=== PATIENT | male | born 1995 | race Caucasian/White ===

== ENCOUNTER 2018-07-04 18:06 | Emergency (ER) | payer OTHER ==
[~2018-07-04] VITALS: Ht 160 cm; Wt 60.0 kg
[2018-07-04 18:15] VITALS: TEMP 98
[2018-07-04 20:23] LABS: BASO # 0.1 (0.0-0.2); BASO % 0.4 % (0.0-2.0); EOS # 0.4 (0.0-0.7); EOS % 2.9 % (0-4.0); GRAN # 8.6 (1.4-6.5); GRAN % 70.2 % (42.2-75.2); HEMATOCRIT 42.2 % (42.0-52.0); HEMOGLOBIN 14.9 g/dl (13.5-18.0); LYMPH # 2.1 (1.2-3.4); LYMPH % 17.5 % (20.0-51.0); MEAN CELL VOLUME 89 fl (80.0-100.0); MEAN CORPUSCULAR HEMOGLOBIN 32 pg (27.0-31.0); MEAN CORPUSCULAR HGB CONC 35 g/dl (33.0-37.0); MEAN PLATELET VOLUME 11.9 fl (7.4-10.4); MONO # 1.1 (0.1-0.6); MONO % 8.7 % (1.7-9.3); PLATELET COUNT 209 K/mm3 (130-400); RED BLOOD COUNT 4.73 M/mm3 (4.20-5.60); REDCELL DISTRIBUTION WIDTH-CV 11.9 % (11.5-14.5)
[2018-07-04 20:34] LABS: ALBUMIN 4.5 gm/dL (3.5-5.0); BILIRUBIN,TOTAL 1.3 mg/dL (0.0-1.0); CALCIUM 9.1 mg/dL (8.4-10.2); CREATININE, serum 0.64 mg/dL (0.66-1.25); POTASSIUM 3.8 mmol/L (3.4-5.0); TOTAL PROTEIN 7.7 gm/dL (6.4-8.2)
[2018-07-04] MEDS ORDERED: ZITHROMAX Z PA250 MG PO (21:02)
[2018-07-04 21:55] VITALS: PULSE 92
== END 2018-07-04 21:55 | disposition home or self-care (01) ==
LOC: COL.ER 18:06
PROVIDERS: Physician Assistant
DX: J06.9 Acute upper respiratory infection, unspecified (principal); E10.9 Type 1 diabetes mellitus without complications
CPT/HCPCS: J7030

== ENCOUNTER 2020-08-27 15:00 | Emergency (ER) | payer OTHER ==
[~2020-08-27] VITALS: Ht 160 cm; Wt 50.0 kg
[~2020-08-27 15:00] MED LIST: ZITHROMAX Z PA250 MG PO
[2020-08-27 15:07] VITALS: BP 117/82; TEMP 98.2
[2020-08-27 17:04] VITALS: PULSE 71
== END 2020-08-27 17:05 | disposition home or self-care (01) ==
LOC: COL.ER 15:00
DX: S06.0X9A Concussion with loss of consciousness of unspecified duration, initial encounter (principal); H72.92 Unspecified perforation of tympanic membrane, left ear; E10.8 Type 1 diabetes mellitus with unspecified complications; F17.200 Nicotine dependence, unspecified, uncomplicated; Z79.4 Long term (current) use of insulin; Z79.2 Long term (current) use of antibiotics; W10.8XXA Fall (on) (from) other stairs and steps, initial encounter; Y93.K1 Activity, walking an animal; Y92.009 Unspecified place in unspecified non-institutional (private) residence as the place of occurrence of the external cause